=== PATIENT | male | born 1945 | race Caucasian/White ===

== ENCOUNTER 2016-05-05 07:06 | Emergency (ER) | payer OTHER ==
[~2016-05-05] VITALS: Ht 170.2 cm; Wt 81.2 kg
--- NOTE | 2016-05-05 07:32 | ED ANKLE/FOOT INJURY COMPLAINT ---
History of Present Illness General Chief Complaint: Plantar Puncture Wound Stated Complaint: RIGHT FOOT PAIN Source: patient Exam Limitations: no limitations Vital Signs & Intake/Output Vital Signs & Intake/Output Vital Signs Date Time Temp Pulse Resp B/P Pulse O2 O2 Flow FiO2 Ox Delivery Rate 05/05 0902 98.2 62 17 148/86 94 Room Air 05/05 0721 Room Air Room Air 05/05 0710 96.9 64 18 154/87 96 Room Air Room Air Allergies Coded Allergies: codeine (Severe, "PASSED OUT" 05/05/16) MDX - Penicillin (PENICILLIN) (Intermediate, HIVES 06/25/14) Penicillins (Intermediate, HIVES 05/05/16) Uncoded Allergies: IV CONSTRAST (Intermediate, HIVES 06/25/14) Triage Note: TRIAGE: 70 Y/O MALE PRESENTS C/O 11/29 RIGHT FOOT PAIN X4 DAYS. REPORTS FOUND A TACK IN THE BOTTOM OF HIS SHOE THAT CONTINUED TO POKE THE PLANTAR SURFACE OF RIGHT FOOT. 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 LAST KNOWN TETANUS 8 YEARS AGO. Triage Nurses Notes Reviewed? yes HPI: Patient presents for evaluation of worsening right foot pain that began about 1 week ago. Patient states he was going down the stairs and took a misstep. He began having right foot pain and felt he was coming down with a bone spur. About 4 days later he found a tack in his foot. yesterday he began having severe pain in the arch of his foot that prevented him from ambulating. He tried soaking it without improvement. He denies any associated fever or cold symptoms rashes or ecchymoses. Past History Travel History Traveled to [place] past 21 day No Medical History Any Pertinent Medical History? 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 No Review of Systems Review of Systems Constitutional: Reports: no symptoms. EENTM: Reports: no symptoms. Respiratory: Reports: no symptoms. Cardiovascular: Reports: no symptoms. GI: Reports: no symptoms. Genitourinary: Reports: no symptoms. Musculoskeletal: Reports: see HPI. Skin: Reports: no symptoms. Neurological/Psychological: Reports: no symptoms. Hematologic/Endocrine: Reports: no symptoms. Immunologic/Allergic: Reports: no symptoms. All Other Systems: Reviewed and Negative Physical Exam Physical Exam Leg/Knee/Thigh Left: see below Comments: Gen.: Well-nourished, well-developed, no acute respiratory distress. Head: Normocephalic, atraumatic. Eyes: Normal inspection bilaterally Ears: Normal inspection bilaterally Nose: Normal inspection, nasal cannula in place Throat/mouth : Moist mucosa Neck: Supple, full range of motion, no goiter Heart: Regular rate and rhythm Lungs: Quiet respirations Back: Normal range of motion Extremities: Right foot: Small puncture wound of the sole of the right midfoot, tenderness in the area of the arch, no erythema. Diffuse soft tissue swelling, mild, of the right foot. No ecchymoses. Normal dorsalis pedis pulse. Neurologic: Cranial nerves grossly intact, speech is clear Skin: warm and dry Psychiatric: Calm, cooperative, no apparent delusions or hallucinations Progress Differential Diagnosis: cellulitis, fracture, dislocation, sprain, contusion Plan of Care: Orders Procedure Date/time Status XRY-FOOT COMPLETE, RIGHT 05/05 731 Active Diagnostic Imaging: Discussed w/RAD: Radiology Read. Radiology Impression: PATIENT: ABEL CLEVELAND PRESENT AGE: 70 PATIENT ACCOUNT NO: [id number] : 43 LOCATION: [facility] ORDERING PHYSICIAN: VISH BILLINGS MD SERVICE DATE: 05/05/16 EXAM TYPE: RAD - XRY-FOOT COMPLETE, R EXAMINATION: XR FOOT, RIGHT CLINICAL INFORMATION: Recent puncture wound sole of foot. Question metallic foreign body or occult fracture. COMPARISON: None TECHNIQUE: AP, lateral, and oblique views of the right foot. FINDINGS: There is no evidence of acute fracture or dislocation of the right foot. No significant soft tissue swelling is appreciated. No radiopaque foreign body is seen. No gas within the soft tissues noted. Degenerative change of the first metatarsophalangeal joint is seen with marginal spurring. IMPRESSION: No significant right foot abnormality identified. No radiopaque foreign body identified. DICTATED BY: KATY GREEN MD DATE/TIME DICTATED:05/05/16931 SHOTBLASTER:CHET DATE/TIME TRANSCRIBED:931 CONFIDENTIAL, DO NOT COPY WITHOUT APPROPRIATE AUTHORIZATION. < Electronically signed in Other Vendor System> SIGNED BY: KATY GREEN MD 05/05/1638 Departure Departure Disposition: HOME OR SELF CARE Condition: Stable Clinical Impression Primary Impression: Right foot sprain Qualifiers: Encounter type: initial encounter Qualified Code: S93.601A - Unspecified sprain of right foot, initial encounter Referrals: HAIDER ADLER MD (PCP/Family) Additional Instructions: Elevate your right foot to reduce swelling. Activity as tolerated. Continue ibuprofen 600 mg every 6 hours as needed for pain. Add Port Tobacco if necessary. If there appears to be any signs of an infection then activate the doxycycline prescription. Follow-up with your primary care physician in one week if not improving. Return if any concerns or sudden worsening. Please note that there might be incidental findings in your evaluation that are unrelated to the current emergency department visit. Please notify your primary care doctor about this emergency department visit in order to obtain and review all of the testing performed so that these incidental findings can be monitored as needed. If you had an x-ray performed, please understand that some fractures may not be seen on the initial set of x-rays. If your symptoms persist you might need a repeat set of x-rays to check for such a fracture. If you had a laceration evaluated, please understand that foreign bodies such as glass or wood may not be visible to the naked eye or on plain x-rays. If the wound becomes red, swollen, increasingly more painful or if there is any drainage from the wound, please have it reevaluated by a physician for the possibility of a retained foreign body. Thank you for choosing the [facility] for your care. It was a pleasure to serve you today. Vish Billings M.D. [facility] Departure Forms: Customer Survey General Discharge Information Prescriptions: Current Visit Scripts Doxycycline Hyclate 1 CAP PO BID #20 CAP Hydrocodone/Acetaminophen (Port Tobacco 5-325 Tablet) 1-2 TAB PO Q6P PRN PAIN #20 TAB
[2016-05-05 09:02] VITALS: BP 148/86
--- NOTE | 2016-05-05 09:38 | RADIOLOGY REPORT ---
EXAMINATION: XR FOOT, RIGHT CLINICAL INFORMATION: Recent puncture wound sole of foot. Question metallic foreign body or occult fracture. COMPARISON: None TECHNIQUE: AP, lateral, and oblique views of the right foot. FINDINGS: There is no evidence of acute fracture or dislocation of the right foot. No significant soft tissue swelling is appreciated. No radiopaque foreign body is seen. No gas within the soft tissues noted. Degenerative change of the first metatarsophalangeal joint is seen with marginal spurring. IMPRESSION: No significant right foot abnormality identified. No radiopaque foreign body identified.
[2016-05-05] MEDS ORDERED: DOXYCYCLINE HY100 M2 PO ×2 (09:46→09:49)
[2016-05-05] MEDS ORDERED: NORCO 5-325 TA1 EACH PO (09:46)
== END 2016-05-05 09:53 ==
LOC: ERH 07:06
DX: S93.601A Unspecified sprain of right foot, initial encounter (principal); X50.0XXA Overexertion from strenuous movement or load, initial encounter
CPT/HCPCS: 73630-RT